=== PATIENT | male | born 1935 | race Caucasian/White ===

== ENCOUNTER 2017-06-22 09:26 | Outpatient (CLI) | payer MEDICARE, BC ==
[2017-06-22] MEDS ORDERED: MIDAZolam 1mg/ml 10ml vial ONE (12:08)
[2017-06-22] MEDS ORDERED: SUFENTANIL CITRATE 50 MCG/ML 2ml ampule IV ONE (12:08)
[2017-06-22] MEDS ORDERED: rocuronium 10mg/ml inj IV ONE ×3 (12:09→16:14)
[2017-06-22] MEDS ORDERED: propofol inj 20 ML IV ONE (16:13)
[2017-06-22] MEDS ORDERED: LIDOcaine 2% (20mg/ml) 5ml vial ONE (16:13)
[2017-06-22] MEDS ORDERED: 0.9 % SODIUM CHLORIDE 10 ML VIAL ONE ×4 (16:13→16:14)
[2017-06-22] MEDS ORDERED: ceFAZolin 1000mg inj ONE (16:14)
== END 2017-06-22 23:59 | disposition home or self-care (01) ==
LOC: RAD 09:26
PROVIDERS: ATTEND Specialist
DX: I61.9 Nontraumatic intracerebral hemorrhage, unspecified (principal)
CPT/HCPCS: 95816; J0690; J2001; J2250; J2704

== ENCOUNTER 2020-05-19 07:14 | Inpatient (IN) | payer MEDICARE, BC ==
[~2020-05-19] VITALS: Ht 177.8 cm; Wt 99.2 kg
[2020-05-19] VITALS (28 sets, daily range): BP systolic 122–180; BP diastolic 48–89
[~2020-05-19 07:14] MED LIST: AMIO200T10 PO; AMLO2.5T5 PO; ASPI-529 PO; FOLI0.4T2 PO; LISI2.5T2 PO; ceFAZolin 2gm in dextrose, iso 50 ML IV ONE; famotidine 20mg tablet PO ONE
[2020-05-19] MEDS ORDERED: nitroPRUSSIDE in NS 100 ML IV PRN (07:30)
[2020-05-19] MEDS ORDERED: phenylephrine inj 50 MG in normal saline 250ml IV soln 245 ML IV PRN (07:30)
[2020-05-19] MEDS: ringers solution, lacted 1,000 ML IV SCH (08:02)
[2020-05-19] MEDS ORDERED: heparin 10,000 units/1 ML INJ ONE ×2 (08:46→11:43)
[2020-05-19] MEDS ORDERED: LIDOcaine 1% 30ml preserv. free vial ONE (08:46)
[2020-05-19 08:52] LABS: BASOPHILS # (AUTO) 0.1 X10'3 (0-0.2); BASOPHILS % (AUTO) 1.5 % (0-1); EOSINOPHILS % (AUTO) 0.4 % (0-6); LYMPHOCYTES # (AUTO) 0.7 X10'3 (1.1-4.8); LYMPHOCYTES % (AUTO) 17.7 % (21-51); MEAN CORPUSCULAR HGB CONC 33.8 g/dL (33.0-36.5); MEAN CORPUSCULAR VOLUME 103.6 FL (78-98); MEAN PLATELET VOLUME 8.9 FL (7.4-10.4); MONOCYTES # (AUTO) 0.5 X10'3 (0-0.9); MONOCYTES % (AUTO) 11.9 % (2-12); NEUTROPHILS # (AUTO) 2.8 X10'3 (1.8-7.7); NEUTROPHILS % (AUTO) 68.5 % (42-75); PRE OP HEMATOCRIT 41.5 % (42.0-52.0); PRE OP PLATELET COUNT 163 X10'3 (140-440); RED BLOOD COUNT 4.01 X10'6 (4.70-6.10); RED CELL DISTRIBUTION WIDTH 14.4 % (11.5-14.5)
[2020-05-19 08:53] LABS: PRE OP PARTIAL THROMB. TIME 27 SECONDS (22-32)
[2020-05-19 08:55] LABS: ALBUMIN 3.2 G/DL (3.4-5.0); ALBUMIN/GLOBULIN RATIO 0.9 (1.1-1.5); ALKALINE PHOSPHATASE 122 IU/L (46-116); BLOOD UREA NITROGEN 13 MG/DL (7-18); BUN/CREATININE RATIO 9.8 (5.4-32.0); CALCIUM 8.9 MG/DL (8.5-10.1); CHLORIDE 106 MMOL/L (99-107); CREATININE 1.33 MG/DL (0.60-1.10); PRE OP ALT 41 U/L (30-65); PRE OP ANION GAP 8 (8-16); PRE OP AST 23 U/L (10-37); PRE OP BILIRUB, TOTAL 0.6 MG/DL (0.0-1.0); PRE OP GLUCOSE 110 MG/DL (70-104); PRE OP POTASSIUM 4.3 MMOL/L (3.4-5.1); PRE OP SODIUM 142 MMOL/L (135-145); TOTAL CARBON DIOXIDE 28.1 MMOL/L (24-32); TOTAL PROTEIN 6.9 G/DL (6.4-8.2); eGFR 51 ML/MIN
[2020-05-19] MEDS ORDERED: LIDOcaine 1% (10mg/ml) 2ml vial ONE (11:43)
[2020-05-19] MEDS ORDERED: desflurane 240ml liquid inh. IH ONE (13:22)
[2020-05-19] MEDS ORDERED: midazolam 2 mg/2 ml injection ONE (13:26)
[2020-05-19] MEDS ORDERED: fentaNYL /PF 50mcg/ml 5ml ampule ONE (13:27)
[2020-05-19] MEDS ORDERED: rocuronium 10mg/ml inj IV ONE ×2 (14:28)
[2020-05-19] MEDS ORDERED: heparin 1,000unit/ml 10ml vial 10 ML ONE (14:28)
[2020-05-19] MEDS ORDERED: dexamethasone sod phosphate 4mg/ml inj. ONE (14:29)
[2020-05-19] MEDS ORDERED: albumin (Human) 5% 250ml 250 ML IV ONE (14:57)
[2020-05-19] MEDS ORDERED: ringers solution, lacted 1,000 ML IV SCH (15:05)
[2020-05-19] MEDS ORDERED: meperidine/PF 25mg/ml syringe IV PRN ×3 (15:05)
[2020-05-19] MEDS ORDERED: morphine 4 MG/ML inj SYRINge IV PRN (15:05)
[2020-05-19] MEDS ORDERED: ondansetron/PF 4mg/2ml inj IV PRN (15:05)
[2020-05-19] MEDS ORDERED: proCHLORperazine 10 MG/2 ml inj IV PRN (15:05)
[2020-05-19] MEDS ORDERED: morphine 2 MG/ML inj. syringe IV PRN (15:05)
[2020-05-19] MEDS ORDERED: glycopyrrolate 0.2mg/ml inj ONE (16:15)
[2020-05-19] MEDS ORDERED: neostigmine methylsulfate 1 MG/ML 10ml vial ONE (16:15)
--- NOTE | 2020-05-19 16:25 | NUR ---
Received from OR via BED, accompanied by Anesthesiologist DR QUEVEDO and report given by Anesthesiologist. PT AWAKE AND SOMEWHAT CONFUSED, ANSWERS QUESTIONS THAT HE CAN HEAR APPROPRIATELY, PT IS VERY VENETIE. RIGHT NECK W/MEDIPORE COVERING INCISION W/HECTOR TO BULB SX. PTS NECK IS FAT AND HAS MANY ROLLS, DIFFICULT TO ASSESS IF ANY SWELLING UNDER DRSG, NONE APPRECIATED. WILL CONTINUE TO MONITOR. Addendum: 05/19/20 at 1731 by Annabelle Clifford RN Amended: Links added.
--- NOTE | 2020-05-19 19:45 | NUR ---
Report called to receiving nurse. Transferred via BED BY DEMETRI Diaz BAG OF Belongings, BILAT HEARING AIDS IN PTS EARS, GLASSES, DENTURES SENT W/PT TO ROOM 312, RECEIVING RN AT BEDSIDE TO RECEIVE PT. Special Issues communicated to receiving nurse. YES. Addendum: 05/19/20 at 2001 by Annabelle Clifford RN Amended: Links added.
[2020-05-19] MEDS ORDERED: FOLI0.4T14 PO (22:06)
[2020-05-20] VITALS: BP 159/60
[2020-05-20] MEDS: ceFAZolin/D5W- 1GM premix 50 ML IV SCH ×2 (00:17→09:44)
--- NOTE | 2020-05-20 03:06 | NUR ---
Called Dr. Bowling regarding the patient being confused and pulling his HECTOR drain, IV, all the lines, trying to get out of the bed. He ordered Haldol 10mg IM once, and need for a sitter. No other orders were given at this time. Addendum: 05/20/20 at 0312 by Richard Bautista RN Jovon is aware of the issue. Waiting for the setter
[2020-05-20] MEDS ORDERED: haloperidol lactate 5mg/ml inj IM ONE (03:25)
[2020-05-20] MEDS: haloperidol lactate 5mg/ml inj IM ONE ×2 (03:25→05:16)
--- NOTE | 2020-05-20 05:47 | NUR ---
patient is combative, noncompliant, pulled out the quality assurance monitor leads, blood pressure cuff, and the IV fluid. Sitter at the bed side. Haldol 10mg IM administered....Patient still combative. Jovon, the charge nurse is aware of the issue.
--- NOTE | 2020-05-20 06:00 | NUR ---
Patient in room MED 312. I have received report from DEMETRI Ramos and had the opportunity to ask questions and assume patient care.
--- NOTE | 2020-05-20 06:26 | NUR ---
Problems reprioritized. Patient report given, questions answered & plan of care reviewed with Rowan-RN.
[2020-05-20] MEDS ORDERED: aspirin 81mg tablet.DR PO SCH (08:00)
[2020-05-20] MEDS ORDERED: folic acid 0.4mg tablet PO SCH (08:00)
[2020-05-20] MEDS: ringers solution, lacted 1,000 ML IV SCH (09:46)
[2020-05-20 10:00] VITALS: BP 145/70
--- NOTE | 2020-05-20 13:10 | NUR ---
Reviewed discharge instructions with pt. Pt verbalized understanding. Pt is alert, oriented and able to walk to the wheelchair. All of pt's belongings were returned to pt. Pt was wheeled downstairs to be driven home by his spouse.
[2020-05-20] MEDS ORDERED: amLODIPine 2.5mg tablet PO SCH (21:00)
[2020-05-20] MEDS ORDERED: amiodarone 200mg tablet PO SCH (21:00)
[2020-05-20] MEDS ORDERED: lisinopril 2.5mg tablet PO SCH (21:00)
== END 2020-05-20 13:00 | disposition home or self-care (01) | DRG 39 ==
LOC: PAS IN 07:14 → EDSTATUS 10:00 → MED 3N 20:00
PROVIDERS: ADMIT Surgery; ATTEND Surgery
PROC: 03UK0KZ Supplement Right Internal Carotid Artery with Nonautologous Tissue Substitute, Open Approach (ICD-10-PCS; 2020-05-19)
PROC: 03CK0ZZ Extirpation of Matter from Right Internal Carotid Artery, Open Approach (ICD-10-PCS; principal; 2020-05-19 13:22)
DX: I65.21 Occlusion and stenosis of right carotid artery (principal); I07.1 Rheumatic tricuspid insufficiency; I10 Essential (primary) hypertension; I48.0 Paroxysmal atrial fibrillation; Z20.828 Contact with and (suspected) exposure to other viral communicable diseases; Z85.51 Personal history of malignant neoplasm of bladder; Z86.73 Personal history of transient ischemic attack (TIA), and cerebral infarction without residual deficits
CPT/HCPCS: 36415; 76937; 80053; 85025; 85610; 85730; 86885; 86900; 86901; 87081; 87635; 93005; A4618; A6258; A7000; C1768; G0378; J0690; J1100; J1630; J1644; J2001; J2250; J2710; J3010; J3490; J7040; J7120; P9045